=== PATIENT | female | born 1970 | race Caucasian/White ===

== ENCOUNTER 2025-07-08 12:57 | Outpatient (AMB) | payer OTHER, SELFPAY ==
--- NOTE | 2025-07-08 12:57 | A.OFFPC_ITS ---
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 - see comments Pharmacy Technologist Required: No Accompanied by: Self / Same As Patient Allergies benzocaine (From CEPACOL SORE THROAT) Allergy (Unknown, Verified 07/08/25 12:58) THROAT TIGHTNESS, SOB cetylpyridinium chloride (From CEPACOL SORE THROAT) Allergy (Unknown, Verified 07/08/25 12:58) THROAT TIGHTNESS, SOB kiwi (KIWI) Allergy (Unknown, Verified 07/08/25 12:58) UNK latex (LATEX) Allergy (Unknown, Verified 07/08/25 12:58) UNK Medication List - Last Reconciled 07/08/25 by FREDERICK Galloway amlodipine-benazepril 5-40 mg 1 cap PO DAILY chlorthalidone 25 mg PO DAILY Tobacco use date assessed: 07/08/25 Dental Screening Dental Screen Date: 07/08/25 Did you have a dental visit in the last 12 months?: Yes Did you have a dental problem in the last 6 months where you did not have access to dental care?: No HPI HPI Comments History of Present Illness Details 55-year-old female with history of hyper tension presenting to the office today for annual physical exam and to establish care. She currently lives at home with her 35-year-old son and feels safe there. 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 One glass of wine once weekly. 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 No ongoing marijuana use, no other drugs. No history of cigarettes. Her exercise currently includes walking at work and walking her dog. She reports she does follow a very healthy diet. Hypertension-has been without her amlodipine-benazepril and chlorthalidone for several weeks. Blood pressure in the office today is 160/86 on recheck. Review of [facility] records shows last blood pressures around 130/80 while taking both of these medications. Concerns: None Health maintenance: Last colo 12/2022, does have brother with colon cancer Last mammo 2022- overdue Last pap 2022- up to date. 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 No sore throat, nasal congestion, rhinorrhea, sinus pain, ear pain. No hearing loss Neck - no adenopathy Cardiovascular: No chest pain, palpitations, or leg edema Respiratory: No shortness of breath, wheezing, cough Breast: No pain, palpable lumps, nipple inversion GI: No dysphagia, odynophagia, globus sensation. No abdominal pain, nausea, vomiting, diarrhea, constipation, melena, hematochezia : No dysuria, hematuria, increased urinary frequency, decreased urinary output. 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 No AH/VH. No SI/HI Skin: No rashes or lesions EXAM: Constitutional - Awake and Alert, No apparent distress Eyes - PERRLA, EOMI. Anicteric Ears - external ears normal, canals clear, TMs intact and pearly garza with good cone of light Nose- septum midline, nares clear, no sinus tenderness Mouth/throat- mucosa moist, tongue and uvula midline, no erythema/edema or tonsillar adenopathy. Neck-trachea midline, thyroid symmetric without palpable nodules, no adenopathy Cardiovascular - S1S2, RRR, No edema Respiratory - Normal lung expansion, Normal respiratory effort, No respiratory distress, CTA bilaterally Gastrointestinal - NT / ND; +BS; No rebound or guarding - No CVA tenderness Extremities - no calf tenderness bilaterally, no swelling Musculoskeletal - Normal inspection, normal ROM Skin - Warm/Dry, no concerning lesions Neurological - Alert & oriented x3, CN II-XII in tact, 5/5 strength BUE and BLE, 2+ patellar reflexes, sensation intact Psychological - Appropriate affect [facility] Medical History (Updated 07/08/25 @ 13:59 by FREDERICK Galloway) HTN (hypertension) Surgical History History of colonoscopy (~01/22/23) Family History (Updated 07/08/25 @ 13:41 by FREDERICK Galloway) Mother HTN (hypertension) Father HTN (hypertension) Sister Diabetes Brother Diabetes Colon cancer Social History Housing: House Patient Tobacco Use Status: Never used Tobacco e-Cigarette/Vaping Use: Never Used service: No Current occupational status: employed Cognitive needs: No Hearing needs: No Vision needs: Yes (reading glasses) Questionnaire PHQ-9 Over the last 2 weeks, how often have you been bothered by any of the following problems? 1. Little interest or pleasure in doing things: not at all 2. Feeling down, depressed, or hopeless: not at all 3. Trouble falling or staying asleep, or sleeping too much: not at all 4. Feeling tired or having little energy: not at all 5. Poor appetite or overeating: not at all 6. Feeling bad about yourself - or that you are a failure or have let yourself or your family down: not at all 7. Trouble concentrating on things, such as reading the newspaper or watching television: not at all 8. Moving or speaking so slowly that other people could have noticed. Or the opposite - being so fidgety or restless that you have been moving around a lot more than usual: not at all 9. Thoughts that you would be better off or of hurting yourself in some way: not at all Total score: 0 Source: Developed by Drs. Gregg De, Shilpi Frias, Zachary Perez and colleagues, with an educational severiano from [employer]. Thrive Questionnaire Date Thrive assessed: 07/08/25 I am a: Patient Within the past 12 months, did the food you bought not last and you didn't have the money to get more?: Never true Within the past 12 months, did you worry whether your food would run out before you got money to buy more?: Never true Do you have trouble paying for medicines?: No Do you have trouble getting transportation to medical appointments?: No Do you have trouble paying your heating and electricity bill?: No Do you have trouble taking care of your child, family member or friend?: No Do you have trouble with day-to-day activities such as bathing, preparing meals, shopping, managing finances, etc.?: No Are you currently unemployed and looking for a job?: No Are you interested in more education?: No THRIVE Score: 0 AUDIT C Alcohol Use Questionnaire (AUDIT-C) 1. How often do you have a drink containing alcohol?: Monthly or less 2. How many drinks containing alcohol do you have on a typical day when you are drinking?: 1 or 2 3. How often do you have six or more drinks on one occasion?: Less than monthly Total Score: 2 HOLLY-7 AMB Questionnaire HOLLY-7 Date HOLLY - 7 assessed: 07/08/25 Feeling nervous, anxious, or on edge: 0 = Not at all Not being able to stop or control worryin = Not at all Worrying too much about different things: 0 = Not at all Trouble relaxin = Not at all Being so restless that it is hard to sit still: 0 = Not at all Becoming easily annoyed or irritable: 0 = Not at all Feeling afraid as if something awful might happen: 0 = Not at all Total HOLLY-7 score (0-4 normal; 5-9 mild; 10-14 moderate; 15-21 severe): 0 Source: Developed by Drs. Gregg De, Shilpi Frias, Zachary Perez and colleagues, with an educational severiano from [employer]. Physical exam (Primary Care) Vital Signs: Last Vital Signs Temp 98.4 F 07/08/25 13:14 Pulse 64 07/08/25 13:14 BP 151/80 H 07/08/25 13:14 Pulse Ox 99 07/08/25 13:14 Oxygen Delivery Method Room Air 07/08/25 13:14 BMI result Body Mass Index 26.6 Tobacco/Smoking Status: Tobacco use Status Tobacco use date assessed 07/08/25 07/08/25 13:00 Patient Tobacco Use Status Never used Tobacco 07/08/25 13:00 e-Cigarette/Vaping Use Never Used 07/08/25 13:00 PHQ-9: PHQ-9 Score PHQ-9: Total score 0 07/08/25 13:05 Thrive Assessment: Date of Thrive Assessment Date Thrive assessed 07/08/25 07/08/25 13:05 Coding Level of Care Code New Pt Prev Care 40-64y(59217) Diagnoses Routine medical exam Z00.00 HTN (hypertension) I10 Assessment & Plan Assessment & Plan (1) Routine medical exam: Code(s): Z00.00 - Encounter for general adult medical examination without abnormal findings Category: Medical Plan: 55-year-old female presents to the office to establish care and for annual physical exam. Plan as below (2) HTN (hypertension): Code(s): I10 - Essential (primary) hypertension Category: Medical Plan: Uncontrolled. Resume amlodipine-benazepril and chlorthalidone as she was previously taking with good management of blood pressures. She will follow-up in the office in 1-2 visits for an nurse blood pressure check. She should also check her blood pressure levels at home Plan Routine screening labs as ordered below Continue with colonoscopies. 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 ordered Wear sun protection in the sun Annual eye exams Dental exams twice yearly Wear seat belt in car Recommend regular exercise and healthy diet Follow-up in 1-2 weeks for blood pressure check with nurse as well as 6 months from now with me Orders: Orders Complete Blood Count Auto Diff Today I10 - Essential (primary) hypertension, Z00.00 - Encounter for general adult medical examination without abnormal findings Lipid Panel Today I10 - Essential (primary) hypertension, Z00.00 - Encounter for general adult medical examination without abnormal findings Liver Panel Today I10 - Essential (primary) hypertension, Z00.00 - Encounter for general adult medical examination without abnormal findings MM tomosynthesis screening BI Today Z12.31 - Encounter for screening mammogram for malignant neoplasm of breast Basic Metabolic Panel Today I10 - Essential (primary) hypertension, Z00.00 - Encounter for general adult medical examination without abnormal findings Hemoglobin A1c Today I10 - Essential (primary) hypertension, Z00.00 - Encounter for general adult medical examination without abnormal findings TSH reflex Free T4 Today I10 - Essential (primary) hypertension, Z00.00 - Encounter for general adult medical examination without abnormal findings Vitamin D 25-OH Total Today I10 - Essential (primary) hypertension, Z00.00 - Encounter for general adult medical examination without abnormal findings Referrals ROLL BUILDER Referral Z12.4 - Encounter for screening for malignant neoplasm of cervix Medications: New amlodipine-benazepril 5-40 mg 1 cap PO DAILY 90 caps 1RF chlorthalidone 25 mg PO DAILY 90 tabs 1RF
[2025-07-08 13:14] VITALS: BP 151/80; PULSE 64; TEMP 36.9; O2SAT 99; BMI 26.6
[2025-07-08 13:57] VITALS: BP 160/86
--- OUTSIDE RECORDS SUMMARY | 2025-07-08 15:11 | XMS_ITS | Clinical Summary ---
Author Organization Tr [facility] Address [address] [place] [phone] Phone Care Team Providers Care Product Safety Specialist Name Role Phone Pcp, Unknown Primary Care Provider Unavailabl e Allergies Active Allergy Reactions Criticality Noted Date Comments Benzocaine-Glycerin 08/07/2021 Medications lisinopril (PRINIVIL,ZESTR IL) 10 MG tablet Take 10 mg by mouth daily. Active guaiFENesin-cod eine (ROBITUSSIN AC) 100-10 mg/5 mL liquidIndicatio ns:COVID-19 virus infection Take 5 mL (10 mg of codeine total) by mouth 3 (three) times a day as needed for cough. 120 mL 08/07/2021 Active Active Problems No known active problems Social History Tobacco Use Types Packs/Day Years Used Date Smoking Tobacco: Never Assessed Education Answer Date Recorded Are you interested in more education? Not on isabel e 12/28/2022 Are you concerned about learning? Not on file 12/28/2022 No 12/28/2022 No 12/28/2022 Digital Access Answer Date Recorded No 01/26/2023 No 01/26/2023 Reliable internet access at home? Not on file 01/26/2023 Device with a working camera? Not on file Comments Unknown Sex and Gender Information Value Date Recorded Sex Assigned at Not on file Legal Sex Female 9:41 AM EST Gender Identity Not on file Sexual Orientation Not on file Last Filed Vital Signs Vital Sign Reading Time Taken Comments Blood Pressure 167/103 08/07/2021 10:30 AM EST Pulse 98 08/07/2021 10:30 AM EST Temperature 37.1 C (98.7 F) 08/07/2021 10:30 AM EST Respiratory Rate 16 08/07/2021 10:30 AM EST Oxygen Saturation 99% 08/07/2021 10:30 AM EST Inhaled Oxygen Concentration - - Weight 66.7 kg (147 lb) 08/07/2021 10:30 AM EST Height 160 cm (5' 3 ) 08/07/2021 10:30 AM EST Body Mass Index 26.04 08/07/2021 10:30 AM EST Plan of Treatment Health Maintenance Due Date Last Done Comments Adult Td,Tdap Booster 1968 CREATININE LEVEL 1968 LIPID PANEL 1968 POTASSIUM LEVEL 1968 DEPRESSION SCREENING 1980 SMOKING Hx and SMOKELESS TOB ACCO SCREENING 1981 HEPATITIS C SCREENING 1986 HIV ONE-TIME SCREENING (18-6 5 YEARS) 1986 PAP SMEAR 1989 MAMMOGRAM 2008 COLOGUARD 2013 COLONOSCOPY 2013 COLORECTAL CANCER SCREENING 2013 FIT TEST 2013 FOBT 2013 SIGMOIDOSCOPY 2013 VIRTUAL COLONOSCOPY 2013 PNEUMOCOCCAL VACCINES (50+ y ears) (1 of 1 - PCV) 2018 ZOSTER VACCINES (1 of 2) 2018 INFLUENZA VACCINE (#1) 2025 COVID-19 VACCINE (1 - 2024-2 6 season) 2025 RSV VACCINE (1 - 1-dose 75+ series) 2043 HEPATITIS A VACCINES Aged Out No long er eligible based on patient's age to complete this topic HIB VACCINES Aged Out No longer eligi ble based on patient's age to complete this topic MENINGOCOCCAL VACCINES (ACWY) Aged Out No longer eligible based on patient's age to complete this topic MENINGOCOCCAL VACCINES (B) Aged Out N o longer eligible based on patient's age to complete this topic Medical Devices Not on file Insurance [facility] Care Teams Product Safety Specialist Relationship Specialty Start Date End Date Pcp, Unknown PCP - General 08/07/21 Additional Source Comments The information contained in this document represents components of the legal health record. It is not the complete legal health record.[facility]
== END 2025-07-08 13:59 | disposition home or self-care (01) ==
LOC: HO.HMCHD 12:58
PROVIDERS: PCP Hospitalist; Visit Provider Physician Assistant
DX: Z00.00 Encounter for general adult medical examination without abnormal findings (principal); I10 Essential (primary) hypertension

== ENCOUNTER → 2025-07-08 12:57 | Outpatient (BNVA) | payer OTHER, SELFPAY | PROVIDERS: PCP Hospitalist; Visit Provider Physician Assistant | DX: Z00.00 Encounter for general adult medical examination without abnormal findings (principal); I10 Essential (primary) hypertension; Z13.30 Encounter for screening examination for mental health and behavioral disorders, unspecified; Z13.39 Encounter for screening examination for other mental health and behavioral disorders | CPT/HCPCS: 99386 ==

== ENCOUNTER 2025-07-15 07:49 | Outpatient (REF) | payer OTHER, SELFPAY ==
--- OUTSIDE RECORDS SUMMARY | 2025-07-15 07:52 | XMS_ITS | Clinical Summary ---
Author Organization [facility] Address [address] [place] [phone] Phone Care Team Providers Care Health Information Provider Name Role Phone Pcp, Unknown Primary Care [...] on patient's age to complete this topic IPV VACCINES Aged Out No longer eligi ble based on patient's age to complete this topic MENINGOCOCCAL VACCINES (ACWY) Aged Out No longer eligible based on patient's age to complete this topic MENINGOCOCCAL VACCINES (B) Aged Out N o longer eligible based on patient's age to complete this topic Medical Devices Not on file Insurance [facility] Care Teams Health Information Provider Relationship Specialty Start Date End Date Pcp, Unknown PCP - General 08/07/21 Additional Source Comments The information contained in this document represents components of the legal health record. It is not the complete legal health record.[facility]
[2025-07-15 07:59] LABS: MANUAL DIFF FLAG NO
[2025-07-15 08:28] LABS: Hematocrit 38.2 % (37.0-47.0); Hemoglobin 12.7 g/dl (12.0-16.0); Imm Gran Abs Auto 0.01 X10*3/uL (0.00-0.03); Imm Gran Pct Auto 0.2 % (0.0-0.4); Lymphocytes Absolute Auto 1.1 X10*3/uL (1.2-4.9); Mean Corpuscular HGB Conc 33.2 g/dl (31.0-35.0); Mean Corpuscular Hemoglobin 30.1 pg (27.0-33.0); Mean Corpuscular Volume 90.5 fL (80.0-98.0); NRBC Abs Auto 0.000 X10*3/uL (0.0-0.012); NRBC Pct Auto 0.0 /100WBC (0.0-0.2); Platelet Count 283 X10*3/uL (160-400); Red Blood Count 4.22 X10*6/uL (4.20-5.50); White Blood Count 5.6 X10*3/uL (4.8-10.8)
[2025-07-15 09:21] LABS: Alanine Aminotransferase 20 U/L (0-31); Albumin Level 4.6 g/dL (3.5-5.0); Alkaline Phosphatase 86 U/L (39-117); Anion Gap 15 (12-20); Aspartate Amino Transferase 29 U/L (5-31); Blood Urea Nitrogen 21 mg/dL (9-16); Calcium 9.5 mg/dL (8.4-10.2); Carbon Dioxide 24 mmol/L (22-29); Chloride 107 mmol/L (96-108); Cholesterol 234 mg/dL (<200); Estimated Glomerular Filt Rate > 60; HDL Cholesterol 83 mg/dL (>40); Potassium 3.6 mmol/L (3.3-5.1); Sodium 142 mmol/L (135-145); Total Protein 7.4 g/dL (6.5-8.0); Triglycerides 53 mg/dL (<150)
== END 2025-07-15 07:50 | disposition home or self-care (01) ==
LOC: HO.LAB 07:49
PROVIDERS: PCP Physician Assistant; Visit Provider Physician Assistant
DX: Z00.00 Encounter for general adult medical examination without abnormal findings (principal); I10 Essential (primary) hypertension
CPT/HCPCS: 36415; 80048; 80061; 80076; 82306; 83036; 84443; 85025